=== PATIENT | female | born 1945 | race Caucasian/White ===

== ENCOUNTER → 2017-10-12 09:41 | Outpatient (CLI) | payer OTHER, SELFPAY | DX: K00-K95 Diseases of the digestive system (principal); M85.88 Other specified disorders of bone density and structure, other site | CPT/HCPCS: 77080 ==

== ENCOUNTER → 2018-04-10 12:36 | Outpatient (CLI) | payer OTHER, SELFPAY ==
--- NOTE | 2018-04-10 12:37 | DI.MG.S_ITS ---
BILATERAL DIGITAL SCREENING MAMMOGRAM 3D/2D WITH CAD: 04/10/2018 CLINICAL: Routine screening. Comparison is made to exams dated: 10/24/2016 mammogram, 10/19/2015 mammogram, and 10/12/2014 mammogram - [facility]. The tissue of both breasts is heterogeneously dense. This may lower the sensitivity of mammography. Current study was also evaluated with a Computer Aided Detection (CAD) system. There are benign vascular calcifications in the right breast. No significant masses, calcifications, or other findings are seen in either breast. There has been no significant interval change. IMPRESSION: There is no mammographic evidence of malignancy. A 1 year screening mammogram is recommended. This exam was interpreted at Station ID: [id number]. NOTE: For mammograms, a report in lay terms will be sent to the patient. Approximately 15% of breast malignancies will not be visualized mammographically. In the management of a palpable breast mass, a negative mammogram must not discourage biopsy of a clinically suspicious lesion. Electronically Signed By: Ambar lemus/gabrielle:04/10/2018 13:11:42 copy to: Delfino Randolph letter sent: Normal Exam ACR BI-RADS Category 2: Benign Finding(s) 3342F
== END ==
PROVIDERS: PCP Internal Medicine
DX: Z12.31 Encounter for screening mammogram for malignant neoplasm of breast (principal)
CPT/HCPCS: 77063; 77067

== ENCOUNTER → 2019-02-18 10:08 | Outpatient (CLI) | payer OTHER, SELFPAY | PROVIDERS: PCP Internal Medicine; Visit Provider Internal Medicine | DX: M85.852 Other specified disorders of bone density and structure, left thigh (principal); Z78.0 Asymptomatic menopausal state; Z90.722 Acquired absence of ovaries, bilateral | CPT/HCPCS: 77080 ==

== ENCOUNTER → 2019-04-16 08:13 | Outpatient (CLI) | payer OTHER, SELFPAY ==
--- NOTE | 2019-04-16 | DI.MG.S_ITS ---
BILATERAL DIGITAL SCREENING MAMMOGRAM 3D/2D WITH CAD: 04/16/2019 CLINICAL: Routine screening. Comparison is made to exams dated: 04/10/2018 mammogram, 10/24/2016 mammogram, and 10/19/2015 mammogram - [facility]. The tissue of both breasts is extremely dense, which lowers the sensitivity of mammography. Current study was also evaluated with a Computer Aided Detection (CAD) system. There are benign vascular calcifications in the right breast. No significant masses, calcifications, or other findings are seen in either breast. There has been no significant interval change. IMPRESSION: There is no mammographic evidence of malignancy. A 1 year screening mammogram is recommended. This exam was interpreted at Station ID: [id number]. NOTE: For mammograms, a report in lay terms will be sent to the patient. Approximately 15% of breast malignancies will not be visualized mammographically. In the management of a palpable breast mass, a negative mammogram must not discourage biopsy of a clinically suspicious lesion. Electronically Signed By: Dong christian/gabrielle:04/18/2019 06:54:04 copy to: Delfino Randolph letter sent: Normal Exam ACR BI-RADS Category 2: Benign Finding(s) 3342F
== END ==
PROVIDERS: PCP Internal Medicine; Visit Provider Internal Medicine
DX: Z12.31 Encounter for screening mammogram for malignant neoplasm of breast (principal)
CPT/HCPCS: 77063; 77067

== ENCOUNTER → 2020-04-21 08:26 | Outpatient (CLI) | payer MEDICARE, SELFPAY ==
--- NOTE | 2020-04-21 08:53 | DI.MG.S_ITS ---
Patient Name: VERA BRAVO date: 1945 Sex: F Attending Physician: Agustín Indications: Date: 04/21/2020 08:46 At the request of: CHIRAG RANDOLPH Procedure: MM screening mammo BI BILATERAL DIGITAL SCREENING MAMMOGRAM 3D/2D WITH CAD: 04/21/2020 CLINICAL: Routine screening. Comparison is made to exams dated: 04/16/2019 mammogram, 04/10/2018 mammogram, and 10/24/2016 mammogram - [facility]. The tissue of both breasts is heterogeneously dense. This may lower the sensitivity of mammography. Current study was also evaluated with a Computer Aided Detection (CAD) system. There are benign vascular calcifications in the right breast. No significant masses, calcifications, or other findings are seen in either breast. There has been no significant interval change. IMPRESSION: BENIGN There is no mammographic evidence of malignancy. A 1 year screening mammogram is recommended. This exam was interpreted at Station ID: [id number]. NOTE: For mammograms, a report in lay terms will be sent to the patient. Approximately 15% of breast malignancies will not be visualized mammographically. In the management of a palpable breast mass, a negative mammogram must not discourage biopsy of a clinically suspicious lesion. Electronically Signed By: Eduar العلي/gabrielle:04/23/2020 08:03:28 copy to: Chirag Randolph letter sent: Normal Exam ACR BI-RADS Category 2: Benign Finding(s) 3342F Continued Report - Page 2 of 2 Patient Name: VERA BRAVO date: 1945 Sex: F Attending Physician: Agustín Indications: Date: 04/21/2020 08:46 At the request of: CHIRAG RANDOLPH Procedure: MM screening mammo BI
== END ==
PROVIDERS: PCP Internal Medicine; Referring Provider Internal Medicine; Visit Provider Internal Medicine
DX: Z12.31 Encounter for screening mammogram for malignant neoplasm of breast (principal)
CPT/HCPCS: 77063; 77067

== ENCOUNTER → 2021-05-04 09:20 | Outpatient (CLI) | payer MEDICARE, SELFPAY ==
--- NOTE | 2021-05-04 | DI.MG.S_ITS ---
BILATERAL DIGITAL SCREENING MAMMOGRAM 3D/2D WITH CAD: 05/04/2021 CLINICAL: Routine screening. Comparison is made to exams dated: 04/21/2020 mammogram, 04/16/2019 mammogram, and 04/10/2018 mammogram - [facility]. The tissue of both breasts is heterogeneously dense. This may lower the sensitivity of mammography. Current study was also evaluated with a Computer Aided Detection (CAD) system. There are benign vascular calcifications in the right breast. No significant masses, calcifications, or other findings are seen in either breast. There has been no significant interval change. IMPRESSION: BENIGN There is no mammographic evidence of malignancy. A 1 year screening mammogram is recommended. This exam was interpreted at Station ID: [id number]. NOTE: For mammograms, a report in lay terms will be sent to the patient. Approximately 15% of breast malignancies will not be visualized mammographically. In the management of a palpable breast mass, a negative mammogram must not discourage biopsy of a clinically suspicious lesion. Electronically Signed By: Kevin Torres M.D., jr/gabrielle:05/06/2021 11:02:57 copy to: Delfino Randolph letter sent: Normal Exam ACR BI-RADS Category 2: Benign Finding(s) 3342F
== END ==
PROVIDERS: PCP Internal Medicine; Referring Provider Internal Medicine; Visit Provider Internal Medicine
DX: Z12.31 Encounter for screening mammogram for malignant neoplasm of breast (principal)
CPT/HCPCS: 77063; 77067

== ENCOUNTER → 2022-06-21 07:58 | Outpatient (CLI) | payer MEDICARE, SELFPAY ==
--- NOTE | 2022-06-21 08:01 | DI.MG.S_ITS ---
BILATERAL DIGITAL SCREENING MAMMOGRAM 3D/2D WITH CAD: 06/21/2022 CLINICAL: Routine screening. Comparison is made to exams dated: 05/04/2021 mammogram, 04/21/2020 mammogram, and 04/16/2019 mammogram - [facility]. Both breasts are heterogeneously dense, which may obscure small masses (category c / 51-75% glandular tissue). Current study was also evaluated with a Computer Aided Detection (CAD) system. There are grouped fine calcifications in the left breast posterior depth superior region seen on the mediolateral oblique view only. No other significant masses, calcifications, or other findings are seen in either breast. IMPRESSION: INCOMPLETE: NEEDS ADDITIONAL IMAGING EVALUATION The grouped fine calcifications in the left breast are indeterminate. Mediolateral, spot magnification, exaggerated CC, and additional views are recommended. Based on the Tyrer Cuzick model (a risk assessment model) the patient's lifetime risk is 2.8% and her 10 year risk is 0.0%. According to the ACR, ACS, and NCCN guidelines, an annual breast MRI exam along with mammogram is recommended if the patient's lifetime risk is 20% or greater. This exam was interpreted at Station ID: [id number]. NOTE: For mammograms, a report in lay terms will be sent to the patient. Approximately 15% of breast malignancies will not be visualized mammographically. In the management of a palpable breast mass, a negative mammogram must not discourage biopsy of a clinically suspicious lesion. Electronically Signed By: Eduar العلي/gabrielle:06/23/2022 02:24:01 copy to: Delfino Randolph letter sent: Additional Imaging Needed ACR BI-RADS Category 0: Incomplete 3340F
== END ==
PROVIDERS: PCP Physician Assistant; Referring Provider Physician Assistant; Visit Provider Physician Assistant
DX: Z12.31 Encounter for screening mammogram for malignant neoplasm of breast (principal)
CPT/HCPCS: 77063; 77067

== ENCOUNTER → 2022-07-18 09:16 | Outpatient (CLI) | payer OTHER, SELFPAY ==
--- NOTE | 2022-07-18 | DI.MG.S_ITS ---
UNILATERAL LEFT DIGITAL DIAGNOSTIC MAMMOGRAM 3D/2D WITH ADDITIONAL VIEWS: 07/18/2022 CLINICAL: Additional evaluation requested from prior study. Comparison is made to exams dated: 06/21/2022 mammogram, 05/04/2021 mammogram, and 04/21/2020 mammogram - [facility]. The left breast is heterogeneously dense, which may obscure small masses (category c / 51-75% glandular tissue). There are calcifications in the left breast posterior depth superior region seen on the mediolateral oblique view only. These are seen on an additional magnified view and represent vascular calcifications. No other significant masses or calcifications are seen in the breast. IMPRESSION: BENIGN There is no mammographic evidence of malignancy. A 1 year screening mammogram is recommended. Based on the Tyrer Cuzick model (a risk assessment model) the patient's lifetime risk is 2.8% and her 10 year risk is 0.0%. According to the ACR, ACS, and NCCN guidelines, an annual breast MRI exam along with mammogram is recommended if the patient's lifetime risk is 20% or greater. This exam was interpreted at Station ID: [id number]. NOTE: For mammograms, a report in lay terms will be sent to the patient. Approximately 15% of breast malignancies will not be visualized mammographically. In the management of a palpable breast mass, a negative mammogram must not discourage biopsy of a clinically suspicious lesion. Electronically Signed By: Ambar Bernal M.D. lk/:07/18/2022 09:48:57 copy to: Delfino Randolph letter sent: Normal Exam ACR BI-RADS Category 2: Benign Finding(s) 3342F
== END ==
PROVIDERS: PCP Physician Assistant; Referring Provider Physician Assistant; Visit Provider Physician Assistant
DX: R92.8 Other abnormal and inconclusive findings on diagnostic imaging of breast (principal)
CPT/HCPCS: 77065; G0279

== ENCOUNTER → 2023-07-25 08:04 | Outpatient (CLI) | payer MEDICARE, SELFPAY ==
--- NOTE | 2023-07-25 | DI.MG.S_ITS ---
BILATERAL DIGITAL SCREENING MAMMOGRAM 3D/2D WITH CAD: 07/25/2023 CLINICAL: Routine screening. Comparison is made to exams dated: 07/18/2022 mammogram, 06/21/2022 mammogram, 05/04/2021 mammogram, and 04/21/2020 mammogram - [facility]. Both breasts are heterogeneously dense, which may obscure small masses (category c / 51-75% glandular tissue). Current study was also evaluated with a Computer Aided Detection (CAD) system. No significant masses, calcifications, or other findings are seen in either breast. There has been no significant interval change. IMPRESSION: NEGATIVE There is no mammographic evidence of malignancy. A 1 year screening mammogram is recommended. Based on the Tyrer Cuzick model (a risk assessment model) the patient's lifetime risk is 2.4% and her 10 year risk is 0.0%. According to the ACR, ACS, and NCCN guidelines, an annual breast MRI exam along with mammogram is recommended if the patient's lifetime risk is 20% or greater. This exam was interpreted at Station ID: [id number]. NOTE: For mammograms, a report in lay terms will be sent to the patient. Approximately 15% of breast malignancies will not be visualized mammographically. In the management of a palpable breast mass, a negative mammogram must not discourage biopsy of a clinically suspicious lesion. Electronically Signed By: Donna Maharaj M.D., PH.D mary lou/gabrielle:07/27/2023 09:24:04 copy to: Delfino Randolph letter sent: Normal Exam ACR BI-RADS Category 1: Negative 3341F
== END ==
PROVIDERS: PCP Physician Assistant; Referring Provider Physician Assistant; Visit Provider Physician Assistant
DX: Z12.31 Encounter for screening mammogram for malignant neoplasm of breast (principal); R92.333 Mammographic heterogeneous density, bilateral breasts
CPT/HCPCS: 77063; 77067

== ENCOUNTER → 2023-10-12 14:29 | Outpatient (CLI) | payer MEDICARE, SELFPAY ==
--- NOTE | 2023-10-12 14:32 | DI.RAD.S_ITS ---
PROCEDURE: XR HIP W PEL IF DONE LT 2V INDICATIONS: LT HIP PAIN TECHNIQUE: 2 views of the hip were acquired. COMPARISON: None. FINDINGS: Bones: [id number] degenerative change of the right hip. Mild degenerative change of the left hip. No acute fracture or dislocation of the left hip. Soft tissues: No suspicious soft tissue calcifications or masses. IMPRESSION: No acute bony abnormality. Dictated by: Scarlett Stockton M.D. on 10/12/2023 at 18:22 Approved by: Scarlett Stockton M.D. on 10/12/2023 at 18:24
--- NOTE | 2023-10-12 14:33 | DI.RAD.S_ITS ---
PROCEDURE: XR KNEE RT 3V INDICATIONS: RT KNEE PAIN TECHNIQUE: 3 views of the knee were acquired. COMPARISON: None. 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 No acute fracture or dislocation. Soft tissues: No joint effusion. No suspicious soft tissue calcifications. IMPRESSION: Degenerative changes as described above. Dictated by: Scarlett Stockton M.D. on 10/12/2023 at 18:21 Approved by: Scarlett Stockton M.D. on 10/12/2023 at 18:22
--- NOTE | 2023-10-12 14:33 | DI.RAD.S_ITS ---
PROCEDURE: XR LUMBAR SPINE 2-3V INDICATIONS: LOW BACK PAIN TECHNIQUE: 3 views of the lumbar spine were acquired. COMPARISON: None. FINDINGS: Bones: Mild levoscoliosis of the lumbar spine. Vertebral body heights are well-maintained. Multilevel, mild degenerative disc disease of the lumbar spine. Mild lower lumbar facet arthropathy. Soft tissues: Overlying bowel gas pattern is normal. No suspicious soft tissue calcifications. IMPRESSION: Degenerative changes as described above. Dictated by: Scarlett Stockton M.D. on 10/12/2023 at 18:18 Approved by: Scarlett Stockton M.D. on 10/12/2023 at 18:20
== END ==
PROVIDERS: PCP Physician Assistant; Referring Provider Internal Medicine; Visit Provider Internal Medicine
DX: M47.816 Spondylosis without myelopathy or radiculopathy, lumbar region (principal); M51.36 Other intervertebral disc degeneration, lumbar region; M41.9 Scoliosis, unspecified; M17.11 Unilateral primary osteoarthritis, right knee; M25.552 Pain in left hip; M25.561 Pain in right knee; M54.50 Low back pain, unspecified; G89.29 Other chronic pain
CPT/HCPCS: 72100; 73502; 73562

== ENCOUNTER → 2024-08-09 16:38 | Outpatient (CLI) | payer MEDICARE, SELFPAY ==
--- NOTE | 2024-08-09 16:39 | DI.MG.S_ITS ---
MM screening mammo BI: 08/09/2024. BI-RADS: 0 CLINICAL: 79-year old female for bilateral screening mammogram. Tyrer-Cuzick lifetime risk of 2.2%. No personal or first-degree family history of breast cancer. PRIOR EXAMS 07/25/2023, 07/18/2022, 06/21/2022, 05/04/2021, 04/21/2020, 04/16/2019, 04/10/2018, 10/24/2016, 10/19/2015, 10/12/2014. MAMMOGRAPHY TECHNIQUE: 2D and 3D (tomosynthesis) digital mammographic views obtained, with additional images as needed for full coverage. Current study was also evaluated with a Computer Aided Detection (CAD) system. DENSITY D. The breasts are extremely dense, which lowers the sensitivity of mammography. MAMMOGRAPHY FINDINGS Right: No suspicious mass, asymmetry, microcalcification, or other abnormality seen. Left: CC only, Outer, Middle depth: Asymmetry needing additional imaging evaluation. IMPRESSION: Right * No evidence of malignancy. Left (Asymmetry): CC only, Outer, Middle depth * Incomplete - asymmetry needing additional imaging evaluation. RECOMMENDATIONS Left: CC only, Outer, Middle depth * Further evaluation with diagnostic mammography and diagnostic ultrasound. OVERALL ASSESSMENT CATEGORY BI-RADS-0: Incomplete - Need Additional Imaging Evaluation. ELECTRONICALLY SIGNED: Teo Molina M.D. on 08/10/2024 at 02:55:24 PM PT Interpreting Station ID: [id number]
== END ==
LOC: MAMMO 16:39
PROVIDERS: PCP Physician Assistant; Referring Provider Physician Assistant; Visit Provider Physician Assistant
DX: Z12.31 Encounter for screening mammogram for malignant neoplasm of breast (principal); R92.8 Other abnormal and inconclusive findings on diagnostic imaging of breast; R92.30 Dense breasts, unspecified
CPT/HCPCS: 77063; 77067

== ENCOUNTER → 2024-09-07 09:28 | Outpatient (CLI) | payer MEDICARE, SELFPAY ==
--- NOTE | 2024-09-07 09:30 | DI.MG.S_ITS ---
MM diagnostic mammo unilat LT: 09/07/2024. BI-RADS: 1 CLINICAL: 79-year old female for left diagnostic mammogram that is a recall from screening on 08/09/2024. Tyrer-Cuzick lifetime risk of 2.2%. No personal or first-degree family history of breast cancer. PRIOR EXAMS 08/09/2024, 07/25/2023, 07/18/2022, 06/21/2022, 05/04/2021, 04/21/2020, 04/16/2019. MAMMOGRAPHY TECHNIQUE: 2D and 3D (tomosynthesis) digital mammographic views obtained, with additional images as needed for full coverage. Current study was also evaluated with a Computer Aided Detection (CAD) system. DENSITY Left: D. The breasts are extremely dense, which lowers the sensitivity of mammography. MAMMOGRAPHY FINDINGS Left: CC only, Outer, Middle depth: There is no suspicious mammographic finding to account for imaging concern of an asymmetry on mammography. The previously identified asymmetry has resolved on diagnostic views. No suspicious mass, asymmetry, microcalcification, or other abnormality seen. IMPRESSION: Left * No evidence of malignancy. RECOMMENDATIONS Bilateral * Annual screening mammography. COMMENTS: Findings and recommendations were conveyed to the patient during today's evaluation. OVERALL ASSESSMENT CATEGORY BI-RADS-1: Negative. The [employer] recommends annual screening mammography beginning at age 40 for women with average risk of breast cancer. ELECTRONICALLY SIGNED: Christiane Camejo M.D. on 09/07/2024 at 10:17:25 AM PT Interpreting Station ID: [id number]
== END ==
PROVIDERS: PCP Physician Assistant; Referring Provider Physician Assistant; Visit Provider Physician Assistant
DX: R92.8 Other abnormal and inconclusive findings on diagnostic imaging of breast (principal); R92.342 Mammographic extreme density, left breast
CPT/HCPCS: 77065; G0279